=== PATIENT | male | born 1995 | race Caucasian/White ===

== ENCOUNTER 2018-07-18 18:01 | Emergency (ER) | payer OTHER ==
[~2018-07-18] VITALS: Ht 188 cm; Wt 77.3 kg
[2018-07-18 20:08] VITALS: BP 155/95
[2018-07-18] MEDS ORDERED: ONDA4TAB6 PO (20:14)
[2018-07-18] MEDS ORDERED: ONDANSETRON 4 MG ORAL DISINTEGRATING TAB (Q0162 PER 1MG) PO ONE (20:15)
== END 2018-07-18 20:18 | disposition home or self-care (01) ==
LOC: M ED 18:01
DX: R22.32 Localized swelling, mass and lump, left upper limb (principal); R11.2 Nausea with vomiting, unspecified; R19.7 Diarrhea, unspecified; T50.B15A Adverse effect of smallpox vaccines, initial encounter; Z88.2 Allergy status to sulfonamides; F17.210 Nicotine dependence, cigarettes, uncomplicated
CPT/HCPCS: 99283; Q0162